=== PATIENT | male | born 1950 | race Caucasian/White ===

== ENCOUNTER 2018-03-14 15:06 | Observation (INO) ==
[2018-03-14] MEDS ORDERED: Metoprolol Tartrate 25 MG Tablet PO ONE (16:45)
[2018-03-14] MEDS ORDERED: Sodium Chlor 0.9% Inj 500 ML IV.CONT ONE (16:45)
[2018-03-14] MEDS ORDERED: Chlorhexidine Gluconate 2% 1 Pack (2 Cloths) TOPICAL ONE (16:45)
[2018-03-14] MEDS: Atropine 1% Opth Drops 2 ML Bottle LEFT EYE SCH ×4 (18:45→21:25)
[2018-03-14] MEDS: Tropicamide 1% Opth Drops 15 ML Bottle LEFT EYE SCH ×4 (18:45→21:25)
[2018-03-14] MEDS ORDERED: OPTH ONE (18:45)
[2018-03-14] MEDS ORDERED: PHENYLEPHRINE 2.5% ONE (18:45)
[2018-03-14] MEDS ORDERED: Phenylephrine 2.5% Opth Drops 2 ML Bottle ONE (18:45)
[2018-03-14] MEDS: Cyclopentolate 1% Opth Drops 2 ML Bottle LEFT EYE SCH ×4 (18:45→21:25)
[2018-03-14] MEDS: Phenylephrine 2.5% Opth Drops 2 ML Bottle LEFT EYE SCH ×4 (18:45→21:25)
[2018-03-14] MEDS ORDERED: Cyclopentolate 1% Opth Drops 2 ML Bottle ONE (18:46)
[2018-03-14] MEDS ORDERED: Atropine 1% Opth Drops 5 ML Bottle ONE (18:46)
[2018-03-14] MEDS ORDERED: Tropicamide 1% Opth Drops 15 ML Bottle ONE (18:59)
[2018-03-14] MEDS ORDERED: Moxifloxacin 0.5% Opth Drops 3 ML Bottle LEFT EYE SCH (20:15)
[2018-03-14] MEDS ORDERED: prednisoLONE Acetate 1% Opth Susp 5 ML Bottle LEFT EYE SCH (20:15)
[2018-03-14] MEDS ORDERED: ceFAZolin Inj 500 MG Vial ONE (21:38)
[2018-03-14] MEDS ORDERED: fentaNYL Citrate Inj 100 MCG/2 ML Ampul ONE (23:57)
[2018-03-14] MEDS ORDERED: *Labetalol HCl Inj 100 MG/20 ML Vial PERIprocedural Use ONLY IV.PUSH ONE (23:59)
[2018-03-15] MEDS ORDERED: Acetaminophen 500 MG Tablet PO PRN (00:33)
[2018-03-15] MEDS ORDERED: OPTH ONE (06:38)
[2018-03-15] MEDS ORDERED: PHENYLEPHRINE 2.5% ONE (06:38)
[2018-03-15 08:26] VITALS: BP 149/80; PULSE 66; RESP 16; TEMP 97.8; O2SAT 94
[2018-03-15] MEDS ORDERED: prednisoLONE Acetate 1% Opth Susp 5 ML Bottle LEFT EYE SCH (09:00)
[2018-03-15] MEDS ORDERED: OPTH LEFT EYE SCH (09:00)
[2018-03-15] MEDS ORDERED: CYCLOPENTOLATE 1% LEFT EYE SCH (09:00)
[2018-03-15] MEDS ORDERED: Moxifloxacin 0.5% Opth Drops 3 ML Bottle LEFT EYE SCH (09:00)
--- NOTE | 2018-03-15 13:39 | ECG ---
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
--- NOTE | 2018-03-20 09:39 | MP ---
cc: Tom Zayas MD DATE OF OPERATION: 03/14/2018 PREOPERATIVE DIAGNOSIS: Retinal detachment, multiple retinal defects, left eye. POSTOPERATIVE DIAGNOSIS: Retinal detachment, multiple retinal defects, left eye. PROCEDURE PERFORMED: Pars vitrectomy, retinal attachment repair, air fluid change, endolaser, insertion of 20% SF6 gas, left eye. COMPLICATIONS: None. ESTIMATED BLOOD LOSS: Less than 1 mL ANESTHESIA: Dr. Luna; general. INDICATIONS FOR PROCEDURE: The patient with a large retinal detachment extending into his macula with a dense vitreous hemorrhage and multiple retinal breaks. The patient elected for surgical correction, understanding the risks, benefits and alternatives. PROCEDURE NOTE: After informed consent was obtained, the patient was brought to the operating room. General anesthesia was established. The left eye was prepped and draped in sterile fashion with Betadine in the conjunctival fornix. A 3-port pars plana vitrectomy was established with the Silvadene infusion cannula. The core vitreous was evacuated. Vitreous traction to the peripheral retina was relieved. The retina was reattached using PFO while subretinal fluid was removed from the existing retinal breaks. Retina reattached quite nicely. Endolaser was applied surrounding multiple retinal defects and nearly 360 degrees with areas of peripheral retinal thinning. Air-fluid exchange was carried out and the retina remained nicely attached. A 20% SF6 gas was instilled. Trocars removed and sclerotomies closed with 7-0 Vicryl suture. The conjunctiva was reapproximated with 6-0 plain gut. Subconjunctival injection of Ancef and dexamethasone were given. The eye was patched with TobraDex ointment. The patient was brought to recovery room in stable condition and will continue followup with [facility] for postoperative care. MD GUDELIA Mahan/preeti , 08:05 AM , 08:11 AM
== END 2018-03-15 09:05 | disposition home or self-care (01) ==
LOC: HSDI 15:06 → HSDC 15:06
PROVIDERS: ADMIT Ophthalmology; ATTEND Ophthalmology
CPT/HCPCS: 93005